=== PATIENT | male | born 1960 | race Caucasian/White ===

== ENCOUNTER 2018-05-30 21:06 | Inpatient (IN) | payer MEDICAID ==
[~2018-05-30] VITALS: Ht 177.8 cm; Wt 80.9 kg
[~2018-05-30 21:06] MED LIST: AMLO10TA2 PO; ASPI81TA31 PO; ATOR20TA PO; DOCU100C36 PO; HYDR-3326 PO; HYDR-548 PO; HYDR25TA86 PO; NITR0.4T48 SL; RIVA20TA PO
--- NOTE | 2018-05-30 21:55 | NUR ---
Dr. Swann at bedside for MSE.
[2018-05-30] MEDS ORDERED: MORPHINE SULFATE 4 MG/1 ML DISP.SYRIN IM ONE (22:15)
[2018-05-30] MEDS ORDERED: MORPHINE SULFATE 4 MG/1 ML DISP.SYRIN ONE (22:20)
--- NOTE | 2018-05-30 23:29 | NUR ---
Dr. Swann on panel call with Dr. Garcia.
--- NOTE | 2018-05-30 23:38 | NUR ---
Pt refused saline lock, blood work, Dr. Garcia aware.
--- NOTE | 2018-05-30 23:42 | NUR ---
Report given to Jackelin CAMPOS Medsurg.
[2018-05-30] MEDS ORDERED: HYDROCODONE/APAP 5-325MG TABLET PO PRN (23:45)
[2018-05-30] MEDS ORDERED: ONDANSETRON 4 MG/2 ML VIAL IV PRN (23:45)
[2018-05-30] MEDS ORDERED: MORPHINE SULFATE 2 MG/1 ML DISP.SYRIN IV PRN (23:45)
[2018-05-30] MEDS ORDERED: ACETAMINOPHEN 325 MG TABLET PO PRN (23:45)
[2018-05-30] MEDS ORDERED: HYDROCODONE/APAP 10-325 MG TABLET PO PRN (23:45)
[2018-05-30] MEDS ORDERED: Z GUARD REMEDY PASTE 57 GM TUBE TOP PRN (23:45)
[2018-05-30] MEDS ORDERED: MAGNESIUM HYDROXIDE 30 ML LIQUID UDC PO PRN (23:45)
[2018-05-30] MEDS ORDERED: hydrALAZINE HCL 25 MG TABLET PO PRN (23:45)
--- NOTE | 2018-05-30 23:55 | NUR ---
ADMITTED A 58 YEARS OLD MALE WITH DIAGNOSIS OF ACUTE PAIN. AAOX4. PAIN ON LEFT HIP 5/10 UPON ADMISSION AND IS TOLERABLE AT THIS LEVEL PER PT. IN NO CUTE DISTRESS. ROUTINE ADMISSION CARE DONE. PLAN OF CARE INITIATED. SAFETY MEASURE INITIATED AND CALL GARCIA WITHIN REACH.
[2018-05-31] VITALS: BP_SYST 158; BP_SYST 164; BP_DIAS 76; BP_DIAS 95
[2018-05-31] MEDS ORDERED: MORPHINE SULFATE 2 MG/1 ML DISP.SYRIN IV PRN (03:45)
[2018-05-31 04:00] VITALS: BP 155/66
--- NOTE | 2018-05-31 06:21 | NUR ---
AAOX4. IN NO ACUTE DISTRESS. OCCASIONAL ANXIETY BUT ABLE TO CALM DOWN ON HIS OWN. NEEDS ATTENDED TO AND MET. PAIN ON LEFT HIP TOLERABLE PER PATIENT. REFUSED LAB WORK THIS AM. SAFETY MEASURE MAINTAINED AND CALL GARCIA WITHIN REACH.
--- NOTE | 2018-05-31 07:00 | NUR ---
RECEIVED PATIENT IN ROOM, A AND O X 4 AGITATION AND VERBAL ABUSE NOTED. PER [facility] PATIENT HAS BEEN UPSET SINCE LAST NIGHT M/B COMPLAINING, YELLING AT STAFF. REFUSED AM LABS AND IV ACCESS. COMFORT MEASURES PROVIDED CALL LIGHT WITHIN REACH. WILL CONTINUE TO MONITOR CLOSELY.
[2018-05-31] MEDS ORDERED: AMLODIPINE 10 MG TABLET PO SCH (09:00)
[2018-05-31] MEDS ORDERED: Medication Not On Formulary EA (Rivaroxaban (Xarelto) 1 TAB) PO SCH (09:00)
[2018-05-31 09:33] VITALS: BP 119/82
[2018-05-31] MEDS ORDERED: RIVAROXABAN 10 MG TABLET PO SCH (18:00)
--- NOTE | 2018-05-31 18:02 | NUR ---
PATIENT DISCHARGED IN STABLE CONDITION, DISCHARGE PAPERS AND INSTRUCTIONS GIVEN AND EXPLAINED TO PATIENT. BELONGINGS LIST COMPLETED AND SIGNED. PATIENT LEFT VIA TAXI PROVIDED BY HOSPITAL.
[2018-05-31] MEDS ORDERED: ATORVASTATIN 20 MG TABLET PO SCH (21:00)
[2018-05-31] MEDS ORDERED: DOCUSATE SODIUM 100 MG CAPSULE PO SCH (21:00)
== END 2018-05-31 18:00 | DRG 351 ==
LOC: ER 21:07 → EDBD 21:07 → MED 23:46 → MERGE 23:46
PROVIDERS: ADMIT Internal Medicine; ATTEND Internal Medicine
DX: M25.552 Pain in left hip (principal); I11.0 Hypertensive heart disease with heart failure; I50.32 Chronic diastolic (congestive) heart failure; D62 Acute posthemorrhagic anemia; Z96.642 Presence of left artificial hip joint; S72.002D Fracture of unspecified part of neck of left femur, subsequent encounter for closed fracture with routine healing; W10.9XXA Fall (on) (from) unspecified stairs and steps, initial encounter; Y93.01 Activity, walking, marching and hiking; Y92.099 Unspecified place in other non-institutional residence as the place of occurrence of the external cause; X58.XXXD Exposure to other specified factors, subsequent encounter; I48.0 Paroxysmal atrial fibrillation; I25.10 Atherosclerotic heart disease of native coronary artery without angina pectoris; I34.0 Nonrheumatic mitral (valve) insufficiency; F17.200 Nicotine dependence, unspecified, uncomplicated; Z79.01 Long term (current) use of anticoagulants; Z91.14 Patient's other noncompliance with medication regimen; F14.10 Cocaine abuse, uncomplicated
CPT/HCPCS: 73502; 73551; 93005; A4663; J2270

== ENCOUNTER 2019-09-07 20:24 | Inpatient (IN) | payer MEDICAID ==
[~2019-09-07] VITALS: Ht 172.7 cm; Wt 91.3 kg
[~2019-09-07 20:24] MED LIST changes: -AMLO10TA2 PO; +AMLO10TA7 PO; +HYDR-4354 PO; -HYDR-548 PO
[2019-09-07] MEDS ORDERED: IV NORMAL SALINE 1000 ML BAG IV ONE (21:00)
[2019-09-07 21:35] LABS: BASOPHILS % (AUTO) 0.2 % (0.0-2.0); EOSINOPHILS # (AUTO) 0.4 K/uL (0.0-0.7); EOSINOPHILS % (AUTO) 4.8 % (0.0-7.0); HEMATOCRIT 41.5 % (36.7-47.1); HEMOGLOBIN 13.7 g/dL (12.5-16.3); LYMPHOCYTES # (AUTO) 1.9 K/uL (20.0-40.0); LYMPHOCYTES % (AUTO) 23.6 % (20.5-51.5); MEAN CORPUSCULAR HEMOGLOBIN 30.6 uug (23.8-33.4); MEAN CORPUSCULAR HGB CONC 33 g/dL (32.5-36.3); MEAN CORPUSCULAR VOLUME 92.8 fL (73.0-96.2); MONOCYTES # (AUTO) 0.6 K/uL (2.0-10.0); NEUTROPHILS % (AUTO) 63.4 % (38.5-71.5); PLATELET COUNT (AUTO) 217 K/uL (152-348); RED BLOOD CELL COUNT(AUTO) 4.47 MIL/uL (4.06-5.63); WHITE BLOOD COUNT (AUTO) 7.9 K/uL (3.6-10.2)
[2019-09-07 21:48] LABS: CREATININE 1.5 mg/dL (0.6-1.3)
[2019-09-07 21:53] LABS: BILIRUBIN,DIRECT 0.1 mg/dL (0.0-0.2); BILIRUBIN,TOTAL 0.3 mg/dL (0.2-1.0); TOTAL PROTEIN, SERUM 6.6 g/dL (6.4-8.2)
[2019-09-07] MEDS ORDERED: MAGNESIUM HYDROXIDE 30 ML LIQUID UDC PO PRN (22:45)
[2019-09-07] MEDS ORDERED: Z GUARD REMEDY PASTE 57 GM TUBE TOP PRN (22:45)
[2019-09-07] MEDS ORDERED: ONDANSETRON 4 MG/2 ML VIAL IV PRN (22:45)
[2019-09-07] MEDS ORDERED: MECLIZINE HCL 25 MG TABLET PO PRN (22:45)
[2019-09-07] MEDS ORDERED: ACETAMINOPHEN 325 MG TABLET PO PRN (22:45)
[2019-09-08] VITALS (7 sets, daily range): BP systolic 138–179; BP diastolic 75–112
[2019-09-08] MEDS: hydrALAZINE HCL 25 MG TABLET PO PRN ×4 (00:02→15:34)
[2019-09-08] MEDS: ZOLPIDEM 5 MG TABLET PO PRN (01:31)
[2019-09-08 04:05] LABS: *BILIRUBIN,URIN NEGATIVE (NEGATIVE); *BLOOD, URINE NEGATIVE (NEGATIVE); *CLARITY,URINE CLEAR (CLEAR); *COLOR,URINE YELLOW (YELLOW); *KETONES,URINE NEGATIVE (NEGATIVE); *UROBILINOGEN,URINE 0.2 E.U./dl (NORMAL); LEUKOCYTE ESTERASE ,URINE NEGATIVE (NEGATIVE); NITRITE, URINE NEGATIVE (NEGATIVE); UGLUCOSE NEGATIVE (NEGATIVE)
[2019-09-08] MEDS: PANTOPRAZOLE SODIUM 40 MG TABLET.DR PO SCH (06:19)
[2019-09-08 07:16] LABS: CREATININE 1.1 mg/dL (0.6-1.3); MAGNESIUM 2.2 mg/dL (1.8-2.4); PHOSPHOROUS 3.4 mg/dL (2.5-4.9); POTASSIUM 3.8 mmol/L (3.5-5.1)
[2019-09-08 07:22] LABS: THYROID STIMULATING HORMONE 2.611 mIU/mL (0.358-3.740)
[2019-09-08 08:15] LABS: BASOPHILS # (AUTO) 0.1 K/uL (0.0-8.0); BASOPHILS % (AUTO) 0.7 % (0.0-2.0); EOSINOPHILS # (AUTO) 0.4 K/uL (0.0-0.7); EOSINOPHILS % (AUTO) 4.3 % (0.0-7.0); HEMATOCRIT 42.3 % (36.7-47.1); HEMOGLOBIN 13.9 g/dL (12.5-16.3); LYMPHOCYTES # (AUTO) 1.9 K/uL (20.0-40.0); LYMPHOCYTES % (AUTO) 21.3 % (20.5-51.5); MEAN CORPUSCULAR HEMOGLOBIN 30.3 uug (23.8-33.4); MEAN CORPUSCULAR HGB CONC 33 g/dL (32.5-36.3); MEAN CORPUSCULAR VOLUME 92.4 fL (73.0-96.2); MONOCYTES # (AUTO) 0.7 K/uL (2.0-10.0); MONOCYTES % (AUTO) 8.4 % (0.0-11.0); NEUTROPHILS # (AUTO) 5.7 K/uL (1.8-8.9); NEUTROPHILS % (AUTO) 65.3 % (38.5-71.5); PLATELET COUNT (AUTO) 209 K/uL (152-348); RED BLOOD CELL COUNT(AUTO) 4.58 MIL/uL (4.06-5.63); WHITE BLOOD COUNT (AUTO) 8.7 K/uL (3.6-10.2)
[2019-09-08] MEDS ORDERED: ASPIRIN 81 MG TAB.CHEW PO SCH (09:00)
[2019-09-08] MEDS ORDERED: Medication Not On Formulary EA (Rivaroxaban (Xarelto) 1 TAB) PO SCH (09:00)
[2019-09-08] MEDS: AMLODIPINE 10 MG TABLET PO SCH (09:08)
[2019-09-08] MEDS: LOSARTAN POTASSIUM 50 MG TABLET PO SCH (12:49)
[2019-09-08] MEDS ORDERED: hydrALAZINE HCL 25 MG TABLET PO PRN (16:30)
[2019-09-08] MEDS: RIVAROXABAN 10 MG TABLET PO SCH (17:00)
[2019-09-08] MEDS: CARVEDILOL 12.5 MG TABLET PO SCH (17:33)
[2019-09-08] MEDS: ATORVASTATIN 20 MG TABLET PO SCH (20:09)
[2019-09-08] MEDS: DOCUSATE SODIUM 100 MG CAPSULE PO SCH (20:10)
[2019-09-08 21:17] LABS: *AMPHETAMINE, URINE NEGATIVE (NEGATIVE); *BARBITURATE, URINE NEGATIVE (NEGATIVE); *CANNABINOID, URINE POSITIVE (NEGATIVE); *COCCAINE, URINE POSITIVE (NEGATIVE); *OPIATE, URINE NEGATIVE (NEGATIVE); *PHENCYCLIDINE SCREEN,URINE NEGATIVE (NEGATIVE)
[2019-09-09] VITALS: BP 165/91
[2019-09-09 04:00] VITALS: BP 133/82
[2019-09-09] MEDS: PANTOPRAZOLE SODIUM 40 MG TABLET.DR PO SCH (06:10)
[2019-09-09] MEDS: LOSARTAN POTASSIUM 50 MG TABLET PO SCH (09:05)
[2019-09-09] MEDS: CARVEDILOL 12.5 MG TABLET PO SCH ×2 (09:06→18:29)
[2019-09-09] MEDS: AMLODIPINE 10 MG TABLET PO SCH (09:06)
[2019-09-09 11:01] VITALS: BP 146/88
[2019-09-09 15:52] VITALS: BP 135/85
[2019-09-09] MEDS: RIVAROXABAN 10 MG TABLET PO SCH (18:28)
[2019-09-09 20:00] VITALS: BP 126/71
[2019-09-09] MEDS: DOCUSATE SODIUM 100 MG CAPSULE PO SCH (20:33)
[2019-09-09] MEDS: ZOLPIDEM 5 MG TABLET PO PRN (20:33)
[2019-09-09] MEDS: ATORVASTATIN 20 MG TABLET PO SCH (20:33)
[2019-09-10 04:45] VITALS: BP 132/84
[2019-09-10] MEDS: PANTOPRAZOLE SODIUM 40 MG TABLET.DR PO SCH (06:26)
[2019-09-10] MEDS: LOSARTAN POTASSIUM 50 MG TABLET PO SCH (09:16)
[2019-09-10] MEDS: CARVEDILOL 12.5 MG TABLET PO SCH (09:16)
[2019-09-10] MEDS: AMLODIPINE 10 MG TABLET PO SCH (09:17)
[2019-09-10 11:17] VITALS: BP 148/83
[2019-09-10] MEDS ORDERED: CARV12.52 PO (12:10)
[2019-09-10] MEDS ORDERED: LOSA50TA3 PO (12:10)
[2019-09-10 15:15] VITALS: BP 105/55
== END 2019-09-10 18:28 | DRG 199 ==
LOC: ER 20:24 → TELE3 23:23 → MEDSURG3 09-09 18:47
PROVIDERS: ADMIT Registered Nurse; ATTEND Internal Medicine
DX: I16.0 Hypertensive urgency (principal); N17.0 Acute kidney failure with tubular necrosis; I42.9 Cardiomyopathy, unspecified; E44.1 Mild protein-calorie malnutrition; I50.32 Chronic diastolic (congestive) heart failure; I48.92 Unspecified atrial flutter; E86.0 Dehydration; I48.0 Paroxysmal atrial fibrillation; I48.91 Unspecified atrial fibrillation; I11.0 Hypertensive heart disease with heart failure; I95.1 Orthostatic hypotension; E78.5 Hyperlipidemia, unspecified; Z79.01 Long term (current) use of anticoagulants; Z96.642 Presence of left artificial hip joint; Z91.19 Patient's noncompliance with other medical treatment and regimen; Z68.30 Body mass index [BMI] 30.0-30.9, adult; I25.10 Atherosclerotic heart disease of native coronary artery without angina pectoris; F14.10 Cocaine abuse, uncomplicated; Z79.82 Long term (current) use of aspirin; Z79.899 Other long term (current) drug therapy; F17.210 Nicotine dependence, cigarettes, uncomplicated; R29.6 Repeated falls
CPT/HCPCS: 36415; 70030-TC; 70450; 71045; 80307; 83605; 83735; 84100; 84443; 85025; 85730; 87040; 93005; 93307; 93880; A4663; G0378; J7030; J8597

== ENCOUNTER 2019-10-01 13:16 | Inpatient (IN) | payer MEDICAID ==
[~2019-10-01] VITALS: Ht 172.7 cm; Wt 91.6 kg
[~2019-10-01 13:16] MED LIST changes: +CARV12.52 PO; -HYDR-3326 PO; -HYDR-4354 PO; +LOSA50TA3 PO; -NITR0.4T48 SL
--- NOTE | 2019-10-01 13:43 | NUR ---
pt ambulating with steady gait. A&O x4. c/o dizziness. per pt "passed out" twice today. denies hitting head. denies blurred vision. speech clear and able tro make needs known / follow commands. Breathing even and unlabored. Denies any SOB. Denies any / GI distress. bed low, s/r up x2
--- NOTE | 2019-10-01 13:50 | NUR ---
Review pt medications w/ pt, he states has not taken his meds for 2 weeks.
[2019-10-01 14:57] LABS: BASOPHILS # (AUTO) 0.1 K/uL (0.0-8.0); EOSINOPHILS # (AUTO) 0.3 K/uL (0.0-0.7); EOSINOPHILS % (AUTO) 3.8 % (0.0-7.0); HEMATOCRIT 44.2 % (36.7-47.1); HEMOGLOBIN 14.9 g/dL (12.5-16.3); LYMPHOCYTES # (AUTO) 1.8 K/uL (20.0-40.0); LYMPHOCYTES % (AUTO) 19.8 % (20.5-51.5); MEAN CORPUSCULAR HEMOGLOBIN 31.2 uug (23.8-33.4); MEAN CORPUSCULAR HGB CONC 34 g/dL (32.5-36.3); MEAN CORPUSCULAR VOLUME 92.3 fL (73.0-96.2); MONOCYTES # (AUTO) 0.7 K/uL (2.0-10.0); MONOCYTES % (AUTO) 7.4 % (0.0-11.0); NEUTROPHILS # (AUTO) 6.1 K/uL (1.8-8.9); PLATELET COUNT (AUTO) 229 K/uL (152-348); RED BLOOD CELL COUNT(AUTO) 4.79 MIL/uL (4.06-5.63)
[2019-10-01 15:06] LABS: CARBON DIOXIDE 26 mmol/L (21-32); CHLORIDE 104 mmol/L (98-107); CREATININE 1.1 mg/dL (0.6-1.3); GLUCOSE 93 mg/dL (74-106); POTASSIUM 3.8 mmol/L (3.5-5.1); UREA NITROGEN, BLOOD 19 mg/dL (7-18)
[2019-10-01 15:11] LABS: ALANINE AMINOTRANSFERASE 19 U/L (16-63); ALKALINE PHOSPHATASE 70 U/L (50-136); ASPARTATE AMINOTRANSFERASE 19 U/L (15-37); BILIRUBIN,DIRECT 0.2 mg/dL (0.0-0.2); BILIRUBIN,TOTAL 0.6 mg/dL (0.2-1.0); TOTAL PROTEIN, SERUM 7.3 g/dL (6.4-8.2)
[2019-10-01 15:14] LABS: ACETAMINOPHEN < 2.0 ug/mL (10-30); ETHANOL < 3 MG/DL (0-0)
--- NOTE | 2019-10-01 15:22 | NUR ---
patient is sitting up eating a sandwich with no new complaints. Denies chest pain or SOB.
[2019-10-01 15:50] LABS: THYROID STIMULATING HORMONE 0.465 mIU/mL (0.358-3.740)
[2019-10-01 16:05] LABS: *BILIRUBIN,URIN NEGATIVE (NEGATIVE); *BLOOD, URINE NEGATIVE (NEGATIVE); *CLARITY,URINE CLEAR (CLEAR); *COLOR,URINE YELLOW (YELLOW); *KETONES,URINE NEGATIVE (NEGATIVE); LEUKOCYTE ESTERASE ,URINE NEGATIVE (NEGATIVE); NITRITE, URINE NEGATIVE (NEGATIVE); PH,URINE 5.5 (5.0-8.0); UGLUCOSE NEGATIVE (NEGATIVE)
[2019-10-01 16:17] LABS: *AMPHETAMINE, URINE NEGATIVE (NEGATIVE); *BARBITURATE, URINE NEGATIVE (NEGATIVE); *CANNABINOID, URINE POSITIVE (NEGATIVE); *COCCAINE, URINE POSITIVE (NEGATIVE); *OPIATE, URINE NEGATIVE (NEGATIVE); *PHENCYCLIDINE SCREEN,URINE NEGATIVE (NEGATIVE)
[2019-10-01 16:22] LABS: MUCUS,URINE MANY /LPF (0-FEW); SQUAMOUS EPITHELIAL CELL,UR FEW /HPF (NONE SEEN)
--- NOTE | 2019-10-01 18:28 | NUR ---
Patient aware of pending transfer to [facility]. Awaiting to here from [place] to obtain bed number and phone number for report.
--- NOTE | 2019-10-01 18:56 | NUR ---
hand off report given to caustic cresylate shift superintendent nurse. Patient is sitting up watching TV.
--- NOTE | 2019-10-01 19:05 | NUR ---
Assumed care of patient from ANDRES Fischer.
--- NOTE | 2019-10-01 19:28 | NUR ---
Patient lying in bed. Eating sandwich watching TV. Denies any chest pain, dizziness or SOB at this time.
--- NOTE | 2019-10-01 20:10 | NUR ---
Patient requested for another sandwich and juice and given. No other complaints. Denies any pain or SOB.
--- NOTE | 2019-10-01 21:05 | NUR ---
Telephone call to [facility]. spoke to Intake/Randy, to follow up regarding transfer of patient. Per Randy they are still working on getting a bed for the patient. They will contact [facility] once it's ready amd [facility] to contact [facility]. Dr. Castillo updated.
--- NOTE | 2019-10-01 21:32 | NUR ---
Epic panel call placed, spoke to Lynn stated she will get a hold of Dr. Chau for admitting.
--- NOTE | 2019-10-01 21:52 | NUR ---
Dr. Castillo on panel call with MADELAINE Chau, patient will be discharge home and follow up with PCP.
--- NOTE | 2019-10-01 21:53 | NUR ---
Dr. Castillo on bedside.
--- NOTE | 2019-10-01 22:07 | NUR ---
Dr. Castillo with panel call with MADELAINE Chau. Patient will be admitted to tele unit for Dx. Syncope.
[2019-10-01] MEDS ORDERED: ONDANSETRON 4 MG/2 ML VIAL IV PRN (22:15)
[2019-10-01] MEDS ORDERED: Z GUARD REMEDY PASTE 57 GM TUBE TOP PRN (22:15)
[2019-10-01] MEDS ORDERED: ACETAMINOPHEN 325 MG TABLET PO PRN (22:15)
[2019-10-01 22:30] VITALS: BP 175/89
--- NOTE | 2019-10-01 22:30 | NUR ---
Patient discharge to TELE unit, room #314. Report was given to ANDRES Potts.
[2019-10-01] MEDS: IV NS 1000 ML 1,000 ML IV PRN (22:41)
[2019-10-01] MEDS ORDERED: hydrALAZINE HCL 25 MG TABLET PO PRN (23:15)
[2019-10-01] MEDS ORDERED: ZOLPIDEM 5 MG TABLET PO PRN (23:15)
[2019-10-01] MEDS: DOCUSATE SODIUM 100 MG CAPSULE PO SCH (23:47)
[2019-10-01] MEDS: LOSARTAN POTASSIUM 50 MG TABLET PO SCH (23:48)
[2019-10-01] MEDS: CARVEDILOL 12.5 MG TABLET PO SCH (23:48)
[2019-10-01] MEDS: ATORVASTATIN 20 MG TABLET PO SCH (23:48)
[2019-10-02 00:24] VITALS: BP 125/63
[2019-10-02] MEDS: LOSARTAN POTASSIUM 50 MG TABLET PO SCH ×2 (01:13→08:17)
[2019-10-02 04:53] VITALS: BP 144/68
--- NOTE | 2019-10-02 05:03 | NUR ---
patient received from ER. no signs of acute distress throughout shift. safety and comfort measures provided. Losartan held and returned to Pyxis due to low BP and additional administration of Coreg. re-checked BP when patient was arousable to reposition for BP at 0113. BP WNL, administered losartan at that time. will continue to monitor and continue plan of care.
[2019-10-02 06:29] LABS: BASOPHILS % (AUTO) 0.6 % (0.0-2.0); EOSINOPHILS # (AUTO) 0.4 K/uL (0.0-0.7); EOSINOPHILS % (AUTO) 6.4 % (0.0-7.0); HEMATOCRIT 40.4 % (36.7-47.1); HEMOGLOBIN 13.5 g/dL (12.5-16.3); LYMPHOCYTES # (AUTO) 1.7 K/uL (20.0-40.0); LYMPHOCYTES % (AUTO) 29.9 % (20.5-51.5); MEAN CORPUSCULAR HEMOGLOBIN 30.4 uug (23.8-33.4); MEAN CORPUSCULAR HGB CONC 34 g/dL (32.5-36.3); MEAN CORPUSCULAR VOLUME 90.7 fL (73.0-96.2); MONOCYTES # (AUTO) 0.5 K/uL (2.0-10.0); MONOCYTES % (AUTO) 8.6 % (0.0-11.0); NEUTROPHILS # (AUTO) 3.1 K/uL (1.8-8.9); NEUTROPHILS % (AUTO) 54.5 % (38.5-71.5); PLATELET COUNT (AUTO) 212 K/uL (152-348); RED BLOOD CELL COUNT(AUTO) 4.45 MIL/uL (4.06-5.63); WHITE BLOOD COUNT (AUTO) 5.7 K/uL (3.6-10.2)
[2019-10-02 06:52] LABS: CREATININE 1.1 mg/dL (0.6-1.3); MAGNESIUM 2.2 mg/dL (1.8-2.4); PHOSPHOROUS 3.4 mg/dL (2.5-4.9); POTASSIUM 3.9 mmol/L (3.5-5.1)
--- NOTE | 2019-10-02 07:20 | NUR ---
Patient in bed awake,and awake with no SOB noted at this time. No complaints of headache or dizziness at this time. IV intact with IV fluids. Bed in low position and side rails up for safety. Ensured safety and comfort. Will continue to monitor. call light within reach.
[2019-10-02] MEDS: CARVEDILOL 12.5 MG TABLET PO SCH ×2 (08:16→18:13)
[2019-10-02] MEDS: ASPIRIN 81 MG TAB.CHEW PO SCH (08:16)
[2019-10-02] MEDS: AMLODIPINE 10 MG TABLET PO SCH (08:18)
[2019-10-02 09:30] VITALS: BP_SYST 146; BP_SYST 147; BP_SYST 165; BP_DIAS 79; BP_DIAS 87; BP_DIAS 90
[2019-10-02] MEDS ORDERED: ZOLPIDEM 5 MG TABLET PO PRN (10:15)
[2019-10-02 11:41] VITALS: BP 124/60
[2019-10-02 15:48] VITALS: BP 139/74
[2019-10-02] MEDS ORDERED: RIVAROXABAN 10 MG TABLET PO SCH (18:00)
--- NOTE | 2019-10-02 18:34 | NUR ---
Patient in bed awake, alert and oriented with no SOB noted at this time. IV intact with IV fluids going at 75 cc/hr. Bed in low position and side rails up for safety. Ensured safety and comfort. Will continue to monitor. call light within reach. Addendum: 10/02/19 at 1839 by REVA GÓMEZ RN Error in charting:Patient in bed awake, alert and oriented with no SOB noted at this time. IV intact with IV fluids going at 60 cc/hr. Bed in low position and side rails up for safety. Ensured safety and comfort. Will continue to monitor. call light within reach.
--- NOTE | 2019-10-02 19:35 | NUR ---
Received a call from Tiffany (case worker from [facility]) saying that patient is not gonna be transferred tonight to different hospital for the loop recorder implantation procedure. She said they will look for another hospital again tony morning.
[2019-10-02 19:45] VITALS: BP 137/71
[2019-10-02] MEDS: DOCUSATE SODIUM 100 MG CAPSULE PO SCH (20:56)
[2019-10-02] MEDS: ATORVASTATIN 20 MG TABLET PO SCH (20:56)
[2019-10-03] VITALS: BP 137/73
[2019-10-03] MEDS: IV NS 1000 ML 1,000 ML IV PRN ×2 (01:10→14:50)
--- NOTE | 2019-10-03 01:30 | NUR ---
Patient had an episode of agitation because he wanted to have a sandwich, explained to patient his on NPO for a procedure but he's insisting to eat. Patient stated he doesn't want the procedure. Informed patient he can sign AMA if he wants to and patient agreed. Upon giving the paper, patient changed his mind and didn't want to sign it. Patient went back to sleep.
[2019-10-03 04:00] VITALS: BP 135/69
[2019-10-03] MEDS: CARVEDILOL 12.5 MG TABLET PO SCH ×2 (08:28→17:04)
[2019-10-03] MEDS: ASPIRIN 81 MG TAB.CHEW PO SCH (08:28)
[2019-10-03] MEDS: LOSARTAN POTASSIUM 50 MG TABLET PO SCH (08:28)
[2019-10-03] MEDS: AMLODIPINE 10 MG TABLET PO SCH (08:28)
[2019-10-03 11:10] VITALS: BP 147/93
--- NOTE | 2019-10-03 12:00 | NUR ---
SEEN BY DR ABAD FOR FOLLOW-UP SEE NOTES
--- NOTE | 2019-10-03 13:30 | NUR ---
RESTING IN BED SEEN BY DR ABAD SEE NOTES
[2019-10-03 15:08] VITALS: BP 146/89
--- NOTE | 2019-10-03 15:37 | NUR ---
STILL AWAITING PLACEMENT TO [facility] FOR LOOP RECORDER IMPLANTATION, V-PACED ON MONITOR. DENIES ACUTE PAIN OR SOB. NPO FOR POSSIBLE TRANSFER TO [facility] FOR HIGHER LEVEL OF CARE
--- NOTE | 2019-10-03 16:22 | NUR ---
REPORT GIVEN TO [facility] STAFF ROOM 103.
[2019-10-03 17:04] VITALS: BP 146/89
--- NOTE | 2019-10-03 17:48 | NUR ---
TRANSFERRED TO [facility] VIA [facility].
== END 2019-10-03 17:55 | disposition short-term general hospital (02) | DRG 48 ==
LOC: ER 13:16 → TELE3 22:16
PROVIDERS: ADMIT Nurse Practitioner Acute Care; ATTEND Internal Medicine
DX: G90.8 Other disorders of autonomic nervous system (principal); I11.0 Hypertensive heart disease with heart failure; E44.1 Mild protein-calorie malnutrition; M48.02 Spinal stenosis, cervical region; I48.0 Paroxysmal atrial fibrillation; I50.32 Chronic diastolic (congestive) heart failure; R55 Syncope and collapse; I48.92 Unspecified atrial flutter; Z91.19 Patient's noncompliance with other medical treatment and regimen; F14.10 Cocaine abuse, uncomplicated; E78.5 Hyperlipidemia, unspecified; F17.210 Nicotine dependence, cigarettes, uncomplicated; J44.9 Chronic obstructive pulmonary disease, unspecified; I25.10 Atherosclerotic heart disease of native coronary artery without angina pectoris; Z79.899 Other long term (current) drug therapy; Z96.642 Presence of left artificial hip joint; Z79.82 Long term (current) use of aspirin; Z79.01 Long term (current) use of anticoagulants; Z91.81 History of falling
CPT/HCPCS: 36415; 70030-TC; 70450; 71045; 72125; 80307; 83605; 83735; 84100; 84443; 85025; 85730; 87040; 87086; 93005; A4663; G0378; G0480; G0480-TC; J7030

== ENCOUNTER 2021-05-19 10:00 | Emergency (ER) | payer MEDICAID ==
[~2021-05-19] VITALS: Ht 175.3 cm; Wt 86.2 kg
[~2021-05-19 10:00] MED LIST changes: +AMLO10TA59 PO; -AMLO10TA7 PO
--- NOTE | 2021-05-19 10:00 | NUR ---
Pt ambulated to room 4a, at bedside or [facility].
--- NOTE | 2021-05-19 10:15 | NUR ---
Bag Hanger at bedside. Blood specimens drawn by RN with saline lock start.
--- NOTE | 2021-05-19 10:19 | NUR ---
Pt to CT via [facility].
--- NOTE | 2021-05-19 10:19 | NUR ---
Pt off to CT at this time. REsp even and unlabored. AAOx3.
[2021-05-19 10:26] LABS: HEMATOCRIT 43.7 % (36.7-47.1); MEAN CORPUSCULAR HEMOGLOBIN 30.5 uug (23.8-33.4); MEAN CORPUSCULAR VOLUME 90.1 fL (73.0-96.2); PLATELET COUNT (AUTO) 232 K/uL (152-348)
--- NOTE | 2021-05-19 10:38 | NUR ---
Pt back from Ct at this time.
[2021-05-19 10:48] LABS: BILIRUBIN,DIRECT 0.2 mg/dL (0.0-0.2); BILIRUBIN,TOTAL 1.1 mg/dL (0.2-1.0); CREATININE 1.1 mg/dL (0.6-1.3); POTASSIUM 3.7 mmol/L (3.5-5.1); TOTAL PROTEIN, SERUM 7.5 g/dL (6.4-8.2)
[2021-05-19] MEDS ORDERED: ASPIRIN 81 MG TAB.CHEW PO ONE (11:15)
--- NOTE | 2021-05-19 11:15 | NUR ---
MEDICATION RECONCILIATION NOTE: Pt's states he is currently not taking any medications at home.
[2021-05-19] MEDS ORDERED: IV NORMAL SALINE 250 ML IV ONE (12:19)
[2021-05-19] MEDS ORDERED: IOHEXOL 350 100 ML INFUS..BTL ONE (12:19)
[2021-05-19] MEDS ORDERED: SWABABLE VALVE TRANSFER SET EA MC ONE (12:19)
--- NOTE | 2021-05-19 12:56 | NUR ---
PT headed down to CT at this time for cta. Pt consented to receive iv contrast but desired for nurses to sign on his behave because he just used urinal and has dirty hands and is not coordinated.
[2021-05-19] MEDS ORDERED: ASPIRIN 300 MG RECTAL SUPP RC ONE ×2 (14:00→14:09)
--- NOTE | 2021-05-19 14:35 | NUR ---
Report given to ANDRES Almodovar of [facility]. Updated by Nishi that patient is to be placed in room 622 instead of 609. Also notified nurse that patient's pick up driver time is set to be for 1530.
--- NOTE | 2021-05-19 16:54 | NUR ---
Report given to STEPHANE Lindsey unit 40. Pt AAOx4 with abc's intact. No changes in previous [facility] assessment.
== END 2021-05-19 17:02 | disposition short-term general hospital (02) ==
LOC: ER 10:02
DX: I63.9 Cerebral infarction, unspecified (principal); G81.94 Hemiplegia, unspecified affecting left nondominant side; R47.81 Slurred speech; Z96.642 Presence of left artificial hip joint; E78.5 Hyperlipidemia, unspecified; Z20.822 Contact with and (suspected) exposure to COVID-19; I48.91 Unspecified atrial fibrillation; I11.0 Hypertensive heart disease with heart failure; I50.9 Heart failure, unspecified; Z79.899 Other long term (current) drug therapy; Z79.01 Long term (current) use of anticoagulants; J44.9 Chronic obstructive pulmonary disease, unspecified; R94.31 Abnormal electrocardiogram [ECG] [EKG]
CPT/HCPCS: 36415; 70450; 70496; 70498; 71045; 80048; 80061; 80076; 84484; 85025; 85730; 87426; 93005; 99291; Q9967; 70030-TC; A4663; J7050

== ENCOUNTER 2021-10-20 20:22 | Emergency (ER) | payer SELFPAY ==
--- NOTE | 2021-10-20 21:00 | NUR ---
PATIENT WAS CALLED TO BE TRIAGED BUT WAS NOT PRESENT IN THE WAITING ROOM.
--- NOTE | 2021-10-20 21:20 | NUR ---
PATIENT WAS CALLED TO BE TRIAGED BUT WAS NOT PRESENT IN THE WAITING ROOM.
--- NOTE | 2021-10-20 21:30 | NUR ---
PATIENT WAS NOT SEEN BY ERMD OR TRIAGED.
== END 2021-10-20 21:30 | disposition left against medical advice (07) ==
LOC: EDBD → ER 20:28 → MERGE 20:28 → ER 21:30
DX: Z53.21 Procedure and treatment not carried out due to patient leaving prior to being seen by health care provider (principal)